=== PATIENT | male | born 1995 | race Caucasian/White ===

== ENCOUNTER 2022-07-27 04:04 | Day surgery (SDC) | payer OTHER ==
[~2022-07-27] VITALS: Ht 165.1 cm; Wt 67.1 kg
[2022-07-27] VITALS (411 sets, daily range): BP systolic 100–140; BP diastolic 50–103
[2022-07-27 08:25] LABS: BASO% 0.8 % (0-3); EOS% 3.3 % (0-8); HEMATOCRIT 31.7 % (39.0-50.0); HEMOGLOBIN 10.6 g/dl (14.0-18.0); IMMATURE GRANULOCYTES 0.2 % (0.0-5.0); MEAN CELL VOLUME 90.1 fL CALC (80.0-100.0); MEAN CORPUSCULAR HGB 30.1 pG CALC (26.0-32.0); MEAN CORPUSCULAR HGB CONC 33.4 g/dL CAL (32.0-36.0); MONO% 11.4 % (2-13); NEUT# 1.94 thou/uL (1.82-7.42); NEUT% 37.3 % (42-76); RED BLOOD COUNT 3.52 mill/uL (4.70-6.10); RED CELL DISTRI WIDTH 12.8 % (11.5-15.5)
[2022-07-27 08:54] LABS: ALBUMIN 3.3 g/dL (3.2-5.0); ALKALINE PHOSPHATASE 53 u/l (38-126); ANION GAP 6 (6-22 (CALC)); BILIRUBIN, TOTAL 0.1 mg/dL (0.2-1.3); BUN 9 mg/dL (9-20); BUN/CREATININE RATIO 13 (12-20 (CALC)); CARBON DIOXIDE 32 mmol/l (22-30); CHLORIDE 102 mmol/l (95-108); CREATININE 0.7 mg/dL (0.7-1.3); GFR FOR AFR.AMER. > 60 ML/MIN (>=60 (CALC)); GFR OTHER RACES > 60 ML/MIN (>=60 (CALC)); POTASSIUM 4.2 mmol/l (3.5-5.1); SGOT/AST 29 u/l (17-59); SODIUM 136 mmol/l (137-146); TOTAL PROTEIN 5.7 g/dL (6.3-8.2)
[2022-07-27] MEDS ORDERED: KLONOPIN2 MG PO (14:26)
[2022-07-27] MEDS ORDERED: CLONIDINE0.1 MG PO (14:26)
[2022-07-27] MEDS ORDERED: NALTREXONE50 MG PO (14:26)
[2022-07-28 04:12] VITALS: BP 118/72
[2022-07-28 07:13] VITALS: BP 118/61
[2022-07-28 09:20] VITALS: BP 118/61
== END 2022-07-28 15:57 | disposition home or self-care (01) | DRG 897 ==
LOC: MS2 04:04 → ANR 04:04
PROVIDERS: ATTEND Anesthesiology
DX: F11.20 Opioid dependence, uncomplicated (principal)
CPT/HCPCS: J2354; J3475; S0164